=== PATIENT | male | born 1975 | race Caucasian/White ===

== ENCOUNTER 2020-01-27 08:01 | Emergency (ER) | payer OTHER, SELFPAY ==
[2020-01-27 08:05] VITALS: BP 152/86; PULSE 85; RESP 18; TEMP 36.6; O2SAT 99
--- NOTE | 2020-01-27 08:28 | ED.SKABFB ---
HPI - Skin/Abscess/Foreign Bdy General Chief complaint: Skin/Abscess/Foreign Body Stated complaint: POSSIBLE LYME DISEASE Time Seen by Provider: 01/27/20 08:28 Source: patient Mode of arrival: ambulatory Limitations: no limitations History of Present Illness HPI narrative: 44-year-old man comes in today complaining of a rash on his left hip and swollen mildly tender lymph nodes in his left groin. Patient states 1 week ago he pulled a very small tick off his left hip. He noticed redness and swelling after a few days which seems to have gotten somewhat better. He denies fever, chills, vomiting, joint pain, joint swelling, other rash, dysuria, hematuria, discharge and abdominal pain. complaint: rash Onset (ago): day(s) (4) Location: generalized Severity: mild Pain Consistency: constant Relieving factors: none Exacerbating factors: none Context: witnessed insect bite Associated symptoms: nausea and malaise Treatments prior to arrival: none Related Data Allergies Allergy/AdvReac Type Severity Reaction Status Date / Time No Known Allergies Allergy Verified 01/27/20 08:30 Review of Systems Constitutional: Constitutional: Denies chills, Denies fever(s) and Denies weakness ENT: Denies dysphagia, Denies nasal congestion and Denies sore throat Cardiovascular: Cardiovascular: Denies chest pain and Denies radiating jaw, neck or arm pain Respiratory: Respiratory: Denies cough, Denies dyspnea and Denies wheezing Gastrointestinal: Gastrointestinal: Denies abdominal pain, Reports nausea and Denies vomiting Genitourinary: Genitourinary: Denies hematuria, Denies dysuria and Denies penile discharge Integumentary/Breasts: Skin/Breast: Reports as per HPI, Denies pruritus, Denies erythema and Denies rash Neurologic: Denies vertigo, Denies dizziness and Denies syncope Allergic/Immunologic: Allergic/Immunologic: Denies lip swelling and Denies wheezing PMFSH Social History Social History (Updated 01/27/20 @ 08:38 by Carl Mcqueen MD) Smoking status: Former smoker Alcohol intake: current Alcohol use details: Social Substance use: current Substance use type: marijuana Living arrangements: with family Exam Const: General: healthy appearing, no acute distress and alert Nutritional Appearance: well nourished Orientation/consciousness: patient oriented x3 HENMT: Head: normal to inspection Ears: external ears normal, TM's normal bilaterally and EAC's normal Mouth: Yes Normal oral and palatal mucosa present and Yes moist mucous membranes Throat: posterior oropharynx normal and uvula midline Eyes: Conjunctivae: conjunctivae normal Pupils: Equal, round and reactive pupils present EOM: EOMs intact bilaterally Resp: Effort & Inspection: normal respiratory effort and not labored Auscultation: clear to auscultation bilaterally, no rales, no rhonchi and no wheezes Cardio: Rate: regular rate Rhythm: regular rhythm Heart sounds: no murmurs GI: Inspection: non-distended Auscultation: normal bowel sounds Other: no masses, tenderness, organomegaly Skin: General skin exam: normal color, no jaundice and no pallor Other: 2.5 x 3 cm area of erythema with an irregular border. The left supraligamental groin there is a 1.5 cm mobile, nontender smooth lymph node. Neuro: General: patient oriented x3, moves all extremities, no focal motor deficits and CN's II-XI intact bilaterally Speech: normal speech Extrem: General: normal to inspection and no clubbing, cyanosis or edema Psych: Appearance: grossly normal and well kempt Mental Status: mental status grossly normal Affect: normal affect Attitude: cooperative Thought content: Yes Normal thought content present Discharge Plan Discharge Clinical Impression: Tick bite Patient Disposition: Home, Self-Care Condition: Stable Instructions: Antibiotic Form, Tick Bite (ED) Additional Instructions: Follow up with Primary Care Doctor in the next week. Pres
[2020-01-27 08:50] VITALS: BP 152/86; PULSE 85; RESP 18; TEMP 36.6; O2SAT 99
== END 2020-01-27 08:51 | disposition home or self-care (01) ==
PROVIDERS: Emergency Provider Emergency Medicine
DX: S70.262A Insect bite (nonvenomous), left hip, initial encounter (principal); W57.XXXA Bitten or stung by nonvenomous insect and other nonvenomous arthropods, initial encounter
CPT/HCPCS: 99283

== ENCOUNTER 2020-02-09 05:42 | Emergency (ER) | payer OTHER, SELFPAY ==
[2020-02-09 05:43] VITALS: BP 156/87; PULSE 74; RESP 18; TEMP 36.7; O2SAT 98
--- NOTE | 2020-02-09 05:56 | ECG_ITS ---
Measurements Intervals Ericson Rate: 61 P: 70 ME: 167 QRS: -9 QRSD: 100 T: 34 QT: 392 QTc: 396 Interpretive Statements SINUS RHYTHM NORMAL ECG Electronically Signed On 02-09-2020 8:39:23 CDT by Wilbert Obrien D.O.
--- NOTE | 2020-02-09 06:16 | ED.SKABFB ---
HPI - Skin/Abscess/Foreign Bdy General Chief complaint: Skin/Abscess/Foreign Body Stated complaint: Tick bite History of Present Illness HPI narrative: This is a 44-year-old male that presents with a tick bite presented on the 26 of January and had a rash on his left hip area and was prescribed doxycycline which she has some almost completed, patient presents back to the emergency department with feelings of weakness, but the rash has improved there is no fever chills no headaches no neck stiffness no palpitations no nausea vomiting no shortness of breath no abdominal pain no diarrhea constipation. The rash located on the left hip area has improved markedly and does have a improving tender left inguinal lymph node. complaint: rash Onset (ago): week(s) Location: LUE (left hip area) Severity: mild Related Data Allergies Allergy/AdvReac Type Severity Reaction Status Date / Time No Known Allergies Allergy Verified 01/27/20 08:30 Review of Systems Review of Systems: All systems reviewed & are unremarkable except as noted in HPI and below PMFSH Past Medical History Medical History Patient denies medical problems Social History Social History Smoking status: Former smoker Alcohol intake: current Substance use: current Substance use type: marijuana Exam Const: General: no acute distress HENMT: Head: normal to inspection Eyes: Conjunctivae: conjunctivae normal Pupils: Equal, round and reactive pupils present Neck: Neck: normal visual inspection, no lymphadenopathy and no meningeal signs Chest: Chest palpation & inspection: normal inspection of the chest Resp: Effort & Inspection: normal respiratory effort Auscultation: clear to auscultation bilaterally Cardio: Rate: regular rate Rhythm: regular rhythm GI: Auscultation: normal bowel sounds : Testes: Testes normal Urinary Catheter: Urinary Catheter: patent and draining Back/Spine/Pelvis: Back: no CVA tenderness Skin: General skin exam: normal color Other: a rash that has markedly improved since the 26 of January on the left hip area Neuro: General: moves all extremities, no meningeal signs and no focal motor deficits Extrem: General: normal to inspection and no pedal edema Psych: Appearance: grossly normal Mental Status: mental status grossly normal Thought content: Yes Normal thought content present Course Course Emergency Course: patient wanting to extend the dose of doxycycline, and is going to follow-up with primary care physician if symptoms persist or worsen. Vital Signs Vital signs: Vital Signs Temperature 36.7 C 02/09/20 05:43 Pulse Rate 74 02/09/20 05:43 Respiratory Rate 18 02/09/20 05:43 Blood Pressure 156/87 H 02/09/20 05:43 Pulse Oximetry 98 02/09/20 05:43 Temperature 36.7 C 02/09/20 05:43 Pulse Rate 74 02/09/20 05:43 Respiratory Rate 18 02/09/20 05:43 Blood Pressure 156/87 H 02/09/20 05:43 Pulse Oximetry 98 02/09/20 05:43 MDM - Skin/Abscess/Foreign Bdy ECG Data EKG #1: Attestation: I personally reviewed and interpreted this ECG as follows: ECG completion date: 02/09/20 ECG completion time: 06:22 EKG Interpretation: normal rate Critical Care Time Critical Care Time Critical Care Time: No Discharge Plan Discharge Clinical Impression: Tick bite Qualifiers: Encounter type: sequela Qualified Code(s): W57.XXXS - Bitten or stung by nonvenomous insect and other nonvenomous arthropods, sequela Patient Disposition: Home, Self-Care Condition: Stable Instructions: Antibiotic Form, Tick Bite (ED) Additional Instructions: Take medicine as prescribed, can also take Motrin for pain and inflammation and follow-up with primary care physician if symptoms persist or worsen. Prescriptions: New doxycycline hyclate 100 mg tablet 100 mg PO
== END 2020-02-09 06:26 | disposition home or self-care (01) ==
PROVIDERS: Emergency Provider Emergency Medicine
DX: S70.262A Insect bite (nonvenomous), left hip, initial encounter (principal); W57.XXXA Bitten or stung by nonvenomous insect and other nonvenomous arthropods, initial encounter
CPT/HCPCS: 93005; 99283; 99284

== ENCOUNTER 2021-08-30 15:18 | Emergency (ER) | payer OTHER, SELFPAY ==
--- NOTE | ~2021-08-30 | CT_ITS ---
EXAMINATION: CT IAC/mastoids BI wo con EXAM DATE: 08/30/2021 16:13 INDICATION: Right Ear Pain Tenderness Around Ear Dizziness, Posterior Ear Swelling. TECHNIQUE: Spiral CT of the internal auditory canals was performed without contrast. Axial and kamaljit nal images were reviewed. The dose-length product (DLP) for this examination was 267.64 mGy-cm. The exposure was tailored according to patient size, and iterative reconstruction (ASIR) was used as add itional dose reduction technique. There is no prior study for comparison. FINDINGS: RIGHT side: The middle ear is well aerated. The mastoid air cells are well aerated. The seventh scrap shear operator nial nerve has a normal course. The scutum is intact. The ossicles are normal in appearance. Small portions of the tegmen tympani have wall that is imperceptible. The cochlea and semicircular canals are normal in appearance. Internal auditory canal is normal in appearance and symmetric compared to contralateral side. LEFT side: The middle ear is well aerated. The mastoid air cells are well aerated. The seventh cran ial nerve has a normal course. The scutum is intact. The ossicles are normal in appearance. Small portions of the tegmen tympani have wall that is imperceptible. The cochlea and semicircular canals are normal in appearance. Internal auditory canal is normal in appearance and symmetric compared to contralateral side. IMPRESSION: Normal CT IAC/temporal bone exam. Reviewed, dictated and finalized at location A. LEAD ARCHITECT
--- NOTE | 2021-08-30 15:45 | ED.EAR ---
HPI - Ear Problem General Chief complaint: Ear Stated complaint: dizzy,headache,popping in ear Source: patient and RN notes reviewed Mode of arrival: ambulatory Limitations: no limitations History of Present Illness HPI Narrative: patient states he has had problem with the right ear for years. Seems to be more intermittent over the last year where it gets painful around the ear anteriorly and inferiorly. He has been seen for it once in the past was given antibiotics oral and antibiotic drops. He says in the last 2-3 days he has become more dizzy with some headaches feels like the right ear is more tender. he also states he has had some trouble with the to with and the right upper molar. MD Complaint: ear pain Location: right ear Duration: intermittent Severity: moderate Relieving factors: nothing Exacerbating factors: palpation Discharge from ear: Reports no Associated symptoms ear: headache and other ( Dizziness) Treatment prior to arrival: none Related Data Allergies Allergy/AdvReac Type Severity Reaction Status Date / Time No Known Allergies Allergy Verified 01/27/20 08:30 Review of Systems Review of Systems: All systems reviewed & are unremarkable except as noted in HPI and below Constitutional: Constitutional: Denies chills and Denies fever(s) ENT: Denies sore throat Respiratory: Respiratory: Denies cough Gastrointestinal: Gastrointestinal: Denies diarrhea, Denies nausea and Denies vomiting PMFSH Past Medical History Medical History (Updated 08/30/21 @ 16:56 by Juan Carlos Alicea MD) Patient denies medical problems Social History Social History Smoking status: Former smoker Alcohol intake: current Alcohol use details: Social Substance use: current Substance use type: marijuana Exam Const: General: healthy appearing, no acute distress and alert Nutritional Appearance: well nourished and thin Orientation/consciousness: patient oriented x3 HENMT: Head: no temporal artery tenderness Ears: hearing grossly normal bilaterally, TM's normal bilaterally, Abnormal EAC present erythema (Mild) on the right and edema (Mild) on the right; no otic discharge and mastoid abnormal (tender anterior amd inferior to auricle) Eyes: Conjunctivae: conjunctivae normal Pupils: Equal, round and reactive pupils present EOM: EOMs intact bilaterally Neck: Neck: normal visual inspection and no lymphadenopathy Resp: Effort & Inspection: normal respiratory effort Auscultation: clear to auscultation bilaterally Cardio: Rate: regular rate Rhythm: regular rhythm GI: GI Palp: Yes Soft to palpation and No Tenderness to palpation present (GI) Auscultation: normal bowel sounds Back/Spine/Pelvis: Cervical Spine: cervical ROM normal Thoracic/Lumbar Spine: thoraco-lumbar ROM normal Skin: General skin exam: normal color Rashes: no rashes Neuro: General: patient oriented x3, moves all extremities, no meningeal signs, no focal motor deficits and CN's II-XI intact bilaterally Speech: normal speech Gait exam (Neuro): Normal gait present Extrem: General: normal to inspection and no clubbing, cyanosis or edema Psych: Appearance: grossly normal and well kempt Mental Status: mental status grossly normal Affect: normal affect Attitude: cooperative Thought content: Yes Normal thought content present Course Vital Signs Vital signs: Vital Signs Temperature 36.8 C 08/30/21 15:51 Pulse Rate 80 08/30/21 15:51 Respiratory Rate 16 08/30/21 15:51 Blood Pressure 145/100 H 08/30/21 15:51 Pulse Oximetry 100 08/30/21 15:51 Temperature 36.8 C 08/30/21 15:51 Pulse Rate 80 08/30/21 15:51 Respiratory Rate 16 08/30/21 15:51 Blood Pressure 145/100 H 08/30/21 15:51 Pulse Oximetry 100 08/30/21 15:51 Medical Decision Making Vital Signs Vital Signs: Vital Signs Temperature 36.8 C 08/30/21 15:51 Pulse Rate 80 08/30/21 15:51 Respirator
[2021-08-30 15:51] VITALS: BP 145/100; PULSE 80; RESP 16; TEMP 36.8; O2SAT 100
[2021-08-30 16:26] LABS: Basophils Absolute Auto 0.04 K/mm3 (0.00-0.10); Basophils Percent Auto 0.5 % (0.0-1.0); Eosinophils Absolute Auto 0.21 K/mm3 (0.02-0.50); Eosinophils Percent Auto 2.6 % (1.0-6.0); Hematocrit 49.7 % (40.0-54.0); Hemoglobin 17.1 g/dL (14.0-18.0); Immature Granulocyte Absolute 0.04 K/mm3 (0.00-0.00); Immature Granulocyte Percent A 0.5 % (0.0-0.0); Lymphocytes Absolute Auto 2.54 K/mm3 (1.10-4.50); Lymphocytes Percent Auto 30.9 % (18.0-42.0); Mean Corpuscular HGB Conc 34.4 g/dL (32.0-36.0); Mean Corpuscular Hemoglobin 30.9 pg (27.0-31.0); Mean Corpuscular Volume 89.9 fL (78.0-102.0); Mean Platelet Volume 8.8 fl (8.7-11.0); Monocytes Absolute Auto 0.53 K/mm3 (0.10-0.90); Monocytes Percent Auto 6.5 % (2.0-11.0); Neutrophils Absolute Auto 4.9 K/mm3 (1.7-7.2); Platelet Count Result 307 K/mm3 (150-420); Red Blood Count 5.53 M/mm3 (4.70-6.10); Red Cell Distribution Width 11.9 % (11.6-14.4); White Blood Count 8.2 K/mm3 (4.8-10.8)
[2021-08-30 16:43] LABS: Anion Gap 12 mmol/L (8-16); Blood Urea Nitrogen 12 mg/dL (7-18); Carbon Dioxide 26 mmol/L (21-32); Chloride 102 mmol/L (98-108); Estimated CRCL calculation 87 ml/min; Estimated Glomerular Filt Rate > 60; Glucose 94 mg/dL (70-99); Osmolality Calculated 289 mOsm/kg (285-295); Potassium 3.7 mmol/L (3.5-5.1); Sodium 140 mmol/L (136-145)
== END 2021-08-30 17:14 | disposition home or self-care (01) ==
PROVIDERS: Emergency Provider Emergency Medicine
DX: H81.11 Benign paroxysmal vertigo, right ear (principal); H60.311 Diffuse otitis externa, right ear
CPT/HCPCS: 36415; 70480; 80048; 85025; 99283; 99284

== ENCOUNTER 2023-05-05 16:28 | Emergency (ER) | payer OTHER, SELFPAY ==
--- NOTE | 2023-05-05 16:29 | ED.EXTPRO ---
HPI - Extremity Problem General Chief complaint: Wound/Laceration Stated complaint: R leg lacerations Time Seen by Provider: 05/05/23 16:29 History of Present Illness HPI Narrative: Patient is a 47-year-old male with history of hypertension here with a laceration to his right leg. Patient states he was jumping a fence [place] and a fence post cut his right leg. He also notes he has a small wound his right hand from the same accident. He denies falling to ground, denies hitting his head, denies loss of consciousness. He notes he minimal bleeding on scene and was concerned that he may need stitches given the size of the wound so he came in for evaluation. Normal strength and sensation in his leg, has been able to ambulate. Last tetanus was 2-3 years ago. He is currently on a cephalosporin antibiotic for chronic mastoiditis. No blood thinner use. Related Data Home Medications Medication Instructions Recorded Confirmed cefuroxime axetil 500 mg tablet 500 mg PO BID 05/05/23 05/05/23 ciprofloxacin 0.3 %-dexamethasone 4 drp EACH EAR BID 05/05/23 05/05/23 0.1 % ear drops,suspension Allergies Allergy/AdvReac Type Severity Reaction Status Date / Time No Known Allergies Allergy Verified 05/05/23 16:35 Review of Systems Review of Systems: CONSTITUTIONAL: Denies fever, chills HEENT: No head injury, No neck pain CARDIOVASCULAR: Denies chest pain, palpitations RESPIRATORY: Denies cough or dyspnea. GASTROINTESTINAL: Denies abdominal pain SKIN: Wound to right leg and right hand MUSCULOSKELETAL: Right thigh pain, no back pain. NEUROLOGIC: Denies headache [facility] Past Medical History Medical History (Updated 05/05/23 @ 17:01 by Lucy Baires MD) Patient denies medical problems Family History Family History (Updated 01/24/23 @ 16:34 by Nikki Barry CMA) Father Hypertension Mother Hypertension Depression Heart disease Mental health problem Sibling Diabetes mellitus Hypertension Depression Mental health problem Other Depression Mental health problem Grandparent Cancer Diabetes mellitus Hypertension Heart disease Mental health problem Grandparent Hypertension Mental health problem Social History Social History (Updated 01/24/23 @ 16:29 by Nikki Barry CMA) Smoking status: Former smoker Alcohol intake: current Alcohol use details: Social Substance use: current Substance use type: marijuana Lack of Transportation: No Lack of Food: Never True Current Housing: I Have Housing Concerned About Future Housing: No Difficulty Paying Gas/Electric Bills: No Difficulty Paying for Meds: No Currently Unemployed: No Education: Bachelor's Degree Difficulty w/ Childcare or Family Care: No Living arrangements: with family Exam Narrative: GENERAL: Well-appearing, well-nourished, and in no acute distress. HEAD: Normocephalic, atraumatic. EYES: PERRLA and EOMI. ENT: Nares clear. Mucous membranes moist. NECK: Supple. No C-spine tenderness. CHEST: Clear to auscultation. No respiratory distress. HEART: Regular rate and rhythm. Normal peripheral pulses. ABDOMEN: Soft, nontender, nondistended. EXTREMITIES: Normal range of motion. 3 cm vertical linear laceration 5-6 cm proximal to the right knee, no concern for knee joint involvement, adipose visible, no active bleeding, no muscle involvement. Normal PMS distal to injury. Full ROM to right wrist where laceration is present, no tenderness, no snuffbox tenderness. Normal PMS distal to injury. SKIN: Warm, dry, no rash. 4 cm superficial linear abrasion to right wrist. NEURO: No focal deficits. Alert and oriented x3. Course Course Emergency Course: Chart review performed. ENT visit on 01/24/23 for ear pain, thought to be likely TMJ issues. He is here today for a laceration to the leg. Triage vitals grossly within normal limits aside from known hypertension. Patient seen and evaluated, in no acu
[2023-05-05 16:36] VITALS: BP 149/126; PULSE 131; RESP 20; TEMP 36.6; O2SAT 98
[2023-05-05 16:57] VITALS: BP 160/99; PULSE 81; RESP 20; TEMP 37.3; O2SAT 98
--- NOTE | 2023-05-05 17:20 | PC.NURSE ---
On 05/05/23, the student, [merle nj ], provided care and completed [facility] documentation on this patient. I have reviewed the student's documentation and agree with the findings.
== END 2023-05-05 17:18 | disposition home or self-care (01) ==
PROVIDERS: Emergency Provider Student in an Organized Health Care Education/Training Program
DX: S81.812A Laceration without foreign body, left lower leg, initial encounter (principal); I10 Essential (primary) hypertension; Z79.2 Long term (current) use of antibiotics; Z87.891 Personal history of nicotine dependence; W45.8XXA Other foreign body or object entering through skin, initial encounter
CPT/HCPCS: 12002; 99282

== ENCOUNTER 2023-12-16 19:06 | Emergency (ER) | payer OTHER, SELFPAY ==
--- NOTE | ~2023-12-16 | XR_ITS ---
EXAM: XR hand LT min 3V DATE: 12/16/2023 19:25 HISTORY: trauma . COMPARISON: None available. FINDINGS: Lateral view limited by overlapping fingers. Normal mineralization. No fracture or dislocat ion. No lytic or blastic lesion. Joint spaces are maintained. No erosion or periosteal change. Soft t issues tissue defect over the thenar soft tissues. No radio opaque foreign body. IMPRESSION: No acute osseous finding the left hand. Reviewed, dictated and finalized at location K.
[2023-12-16 19:08] VITALS: BP 134/97; PULSE 104; RESP 18; TEMP 36.8; O2SAT 98
--- NOTE | 2023-12-16 19:14 | ED.UPPEXIN ---
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 Pt was using chain saw and not sure if he may have cut hand with saw. Pt says he can move the thumb. Pt says it was numb initially but now has sensation. Pt has laceration to thenar area below left thumb. Pt unsure of last tetanus. Related Data Home Medications Medication Instructions Recorded Confirmed cefuroxime axetil 500 mg tablet 500 mg PO BID 05/05/23 05/05/23 ciprofloxacin 0.3 %-dexamethasone 4 drp EACH EAR BID 05/05/23 05/05/23 0.1 % ear drops,suspension Allergies Allergy/AdvReac Type Severity Reaction Status Date / Time No Known Allergies Allergy Verified 12/16/23 19:14 Review of Systems Review of Systems: All systems reviewed & are unremarkable except as noted in HPI and below PMFSH Past Medical History Medical History (Updated 12/16/23 @ 20:53 by Shreya Mazariegos III, DO) Patient denies medical problems Family History Family History (Updated 01/24/23 @ 16:34 by Nikki Barry CMA) Father Hypertension Mother Hypertension Depression Heart disease Mental health problem Sibling Diabetes mellitus Hypertension Depression Mental health problem Other Depression Mental health problem Grandparent Cancer Diabetes mellitus Hypertension Heart disease Mental health problem Grandparent Hypertension Mental health problem Social History Social History (Updated 01/24/23 @ 16:29 by Nikki Barry CMA) Smoking status: Former smoker Alcohol intake: current Alcohol use details: Social Substance use: current Substance use type: marijuana Lack of Transportation: No Lack of Food: Never True Current Housing: I Have Housing Concerned About Future Housing: No Difficulty Paying Gas/Electric Bills: No Difficulty Paying for Meds: No Currently Unemployed: No Education: Bachelor's Degree Difficulty w/ Childcare or Family Care: No Living arrangements: with family Exam Const: General: healthy appearing Nutritional Appearance: well nourished Orientation/consciousness: patient oriented x3 Limitations: no limitations Neck: Neck: normal visual inspection Resp: Effort & Inspection: normal respiratory effort Auscultation: clear to auscultation bilaterally Cardio: Rate: regular rate Rhythm: regular rhythm GI: GI Palp: Yes Soft to palpation and No Tenderness to palpation present (GI) Auscultation: normal bowel sounds Skin: Wounds: wounds noted (irregular laceration about 4 cm left thenar eminence.) Neuro: General: patient oriented x3, moves all extremities and no focal motor deficits Speech: normal speech Extrem: Other: laceration to thenar eminence with pain and tenderness to that area. no swelling to thumb Psych: Mental Status: mental status grossly normal Affect: normal affect Course Vital Signs Vital signs: Vital Signs Temperature 98.2 F 12/16/23 19:08 Pulse Rate 104 H 12/16/23 19:08 Respiratory Rate 18 12/16/23 19:08 Blood Pressure 134/97 H 12/16/23 19:08 Pulse Oximetry 98 12/16/23 19:08 Oxygen Delivery Room Air 12/16/23 19:08 Temperature 98.2 F 12/16/23 20:59 Pulse Rate 82 12/16/23 20:59 Respiratory Rate 18 12/16/23 20:59 Blood Pressure 128/91 H 12/16/23 20:59 Pulse Oximetry 98 12/16/23 20:59 Oxygen Delivery Room Air 12/16/23 20:59 Procedures Laceration Laceration 1: Site: hand Side (If applicable): left Size (cm): 4 Description: irregular Local Anesthetic: lidocaine 1% Amount of anesthesia used (mL): 15 ====== Skin Level ====== Skin layer closed with: nylon Size (cm): 4-0 Number of sutures: 8 Technique: simple, interrupted ====== Subcut
[2023-12-16] MEDS: KETOROLAC 30 MG/ML VIAL (*BKC) IM (19:16)
--- NOTE | 2023-12-16 20:05 | PC.NURSE ---
DR DUKES AT BEDSIDE FOR SUTURING OF PATIENT LEFT HAND.
[2023-12-16] MEDS: LIDOCAINE HCL 1% LOCAL INJ 10 ML VIAL INFILTRATE ×2 (20:10→20:32)
--- NOTE | 2023-12-16 20:15 | PC.NURSE ---
DR. DUKES AT PATIENT BEDSIDE SUTURING.
[2023-12-16] MEDS: TETANUS,DIPHTHERIA,AC PERTUSSIS ADULT 0.5 ML (ADACEL) IM (20:16)
[2023-12-16 20:59] VITALS: BP 128/91; PULSE 82; RESP 18; TEMP 36.8; O2SAT 98
== END 2023-12-16 21:00 | disposition home or self-care (01) ==
PROVIDERS: Emergency Provider Emergency Medicine; PCP Family Medicine
DX: S61.012A Laceration without foreign body of left thumb without damage to nail, initial encounter (principal); W45.8XXA Other foreign body or object entering through skin, initial encounter; Z87.891 Personal history of nicotine dependence; Z23 Encounter for immunization
CPT/HCPCS: 12002; 73130; 90471; 90715; 96372; 99283; J1885

== ENCOUNTER 2024-07-09 00:04 | Emergency (ER) | payer OTHER, SELFPAY ==
[2024-07-09 00:05] VITALS: BP 167/105; PULSE 89; RESP 18; TEMP 35.8; O2SAT 99
--- NOTE | 2024-07-09 00:06 | ED_ITS ---
HPI - Dental/Oral General Chief complaint: Dental/Oral Stated complaint: tooth pain Time Seen by Provider: 07/09/24 00:06 Source: patient Mode of arrival: ambulatory Limitations: no limitations History of Present Illness HPI Narrative: 48-year-old male with a history of middle ear infection/ mastoiditis on [facility] side presents to the ED with A 2 day history of -- right lower jaw pain with swelling of the jaw. --dental pain. history of dental caries. no fever or chills Teeth map: 1. gingivitis Onset (ago): day(s) ( 2 days) Duration: constant Severity: severe Relieving factors: nothing Exacerbating factors: nothing Context: history of dental caries Related Data Home Medications Medication Instructions Recorded Confirmed cefuroxime axetil 500 mg tablet 500 mg PO BID 05/05/23 05/05/23 ciprofloxacin 0.3 %-dexamethasone 4 drp EACH EAR BID 05/05/23 05/05/23 0.1 % ear drops,suspension Allergies Allergy/AdvReac Type Severity Reaction Status Date / Time No Known Allergies Allergy Verified 12/16/23 19:14 Review of Systems Review of Systems: All systems reviewed & are unremarkable except as noted in HPI and below Constitutional: Constitutional: Reports as per HPI and Reports no additional constitutional complaints Eyes: Eyes: Reports as per HPI and Reports no additional eye complaints ENT: Reports system reviewed and no additional complaints, except as documented and Reports as per HPI Respiratory: Respiratory: Reports as per HPI and Reports no additional respiratory complaints Gastrointestinal: Gastrointestinal: Reports as per HPI Genitourinary: Genitourinary: Reports no additional male genitourinary complaints and Reports as per HPI Musculoskeletal: Musculoskeletal: Reports no additional musculoskeletal complaints and Reports as per HPI Integumentary/Breasts: Skin/Breast: Reports system reviewed and no additional complaints, except as docu and Reports as per HPI Neurologic: Reports system reviewed and no additional complaints, except as documented and Reports as per HPI Psychiatric: Psychiatric: Reports no additional psychiatric complaints and Reports as per HPI Endocrine: Endocrine: Reports no additional endocrine complaints and Reports as per HPI Hematologic/Lymphatic: Hematologic/Lymphatic: Reports no additional hematologic/lymphatic complaints and Reports as per HPI Allergic/Immunologic: Allergic/Immunologic: Reports no additional allergic/immunologic complaints and Reports as per HPI [facility] Past Medical History Medical History (Updated 07/09/24 @ 00:21 by Daljit Sosa MD) Mastoiditis Otitis media Patient denies medical problems Family History Family History (Updated 01/24/23 @ 16:34 by Nikki Barry [facility]) Father Hypertension Mother Hypertension Depression Heart disease Mental health problem Sibling Diabetes mellitus Hypertension Depression Mental health problem Other Depression Mental health problem Grandparent Cancer Diabetes mellitus Hypertension Heart disease Mental health problem Grandparent Hypertension Mental health problem Social History Social History (Updated 01/24/23 @ 16:29 by Nikki Barry [facility]) Smoking status: Former smoker Alcohol intake: current Alcohol use details: Social Substance use: current Substance use type: marijuana Lack of Transportation: No Lack of Food: Never True Current Housing: I Have Housing Concerned About Future Housing: No Difficulty Paying Gas/Electric Bills: No Difficulty Paying for Meds: No Currently Unemployed: No Education: Bachelor's Degree Difficulty w/ Childcare or Family Care: No Living arrangements: with family Exam Narrative: blood pressure 167/105. Const: General: no acute distress Orientation/consciousness: patient oriented x3 Limitations: no limitations HENMT: Head: normal to inspection Ears: external ears normal Face/Nose/Sinus: Normal external nose present Face and sinus: normal facial exam ( Swelling of the right lower jaw) Mouth: Yes Normal oral and palatal mucosa present Teeth and gingiva: dentition normal ( extensive dental caries. Gingivitis along the right lower jaw) Throat: posterior oropharynx normal Eyes: Conjunctivae: conjunctivae normal Pupils: Equal, round and reactive pupils present EOM: EOMs intact bilaterally Direct Ophthalmoscopy: no photophobia Neck: Neck: normal visual inspection, no lymphadenopathy and no meningeal signs Chest: Chest palpation & inspection: normal inspection of the chest Resp: Effort & Inspection: normal respiratory effort Auscultation: clear to auscultation bilaterally Cardio: Rate: regular rate Rhythm: regular rhythm GI: Auscultation: normal bowel sounds Other: no tenderness/rigidity / rebound. : General: Yes no CVA tenderness Back/Spine/Pelvis: Back: no CVA tenderness Skin: General skin exam: normal color Rashes: no rashes Wounds: no wounds Neuro: General: patient oriented x3, moves all extremities, no meningeal signs, no focal motor deficits and CN's II-XI intact bilaterally Cranial nerves: Yes Nystagmus not present Speech: normal speech Extrem: General: normal to inspection and no clubbing, cyanosis or edema Psych: Mental Status: mental status grossly normal Affect: normal affect Attitude: cooperative Course Course Emergency Course: Gingivitis dental pain Vital Signs Vital signs: Vital Signs Temperature 35.8 C L 07/09/24 00:05 Pulse Rate 89 07/09/24 00:05 Respiratory Rate 18 07/09/24 00:05 Blood Pressure 167/105 H 07/09/24 00:05 Pulse Oximetry 99 07/09/24 00:05 Oxygen Delivery Room Air 07/09/24 00:05 Temperature 35.8 C L 07/09/24 00:05 Pulse Rate 89 07/09/24 00:05 Respiratory Rate 18 07/09/24 00:05 Blood Pressure 167/105 H 07/09/24 00:05 Pulse Oximetry 99 07/09/24 00:05 Oxygen Delivery Room Air 07/09/24 00:05 MDM - Dental/Oral MDM Narrative Medical decision making narrative: gingivitis dental pain Differential Diagnosis Differential diagnosis: Likely gingival abscess and dental caries Discharge Plan Discharge Clinical Impression: Gingivitis, Toothache Patient Disposition: Home, Self-Care Condition: Stable Instructions: Antibiotic Form, Gingivitis (DC), Toothache (ED) Patient Language: Lithuanian Prescriptions: New clindamycin HCl 300 mg capsule 300 mg PO Q8H Qty: 20 0RF No Action cephalexin 500 mg tablet 500 mg PO Q8H Qty: 30 0RF naproxen [Naprosyn] 500 mg tablet 500 mg PO BID Qty: 20 0RF cefuroxime axetil 500 mg tablet 500 mg PO BID ciprofloxacin-dexamethasone 0.3-0.1 % drops,suspension 4 drp EACH EAR BID Follow-up/Referrals: UNKNOWN,DOCTOR [Primary Care Provider] - Stand Alone Forms: Work/School Release IP Time of Disposition: 00:21
[2024-07-09] MEDS: CLINDAMYCIN HCL 150 MG CAP 300 MG PO (00:21)
[2024-07-09] MEDS: HYDROcodone/acetaminophen (*CRX) 5-325 MG TABLET 2 TAB PO (00:21)
[2024-07-09 00:46] VITALS: BP 158/92; PULSE 82; RESP 18; O2SAT 97
== END 2024-07-09 00:46 | disposition home or self-care (01) ==
PROVIDERS: Emergency Provider Internal Medicine Critical Care Medicine
DX: K05.10 Chronic gingivitis, plaque induced (principal); Z87.891 Personal history of nicotine dependence
CPT/HCPCS: 99283; A9270

== ENCOUNTER 2025-01-06 06:23 | Emergency (ER) | payer OTHER, SELFPAY ==
[2025-01-06 06:23] VITALS: BP 178/105; PULSE 96; RESP 18; TEMP 36.2; O2SAT 98
--- OUTSIDE RECORDS SUMMARY | 2025-01-06 06:25 | XMS_ITS | Continuity of Care Document ---
Author Organization [facility] Address [address] [place] [address] Phone Care Team Providers Care Assistant Professor Of Education Name Role Phone Unavailable Unavailable Unavailable Allergies, Adverse Reactions, Alerts Substance Reaction Status Criticality No Known Allergies Active No Inform ation Medications Medication Instructions Dosage Effective Dates (start - stop) Status Comments hydrocodone 5 mg-acetaminophen 325 mg tablet take 1 tablet by oral route every 6 hours as needed for pain 1.00 tablet - Active Procedures Procedure Date OFFICE/OUTPATIENT VISIT, [facility] Advance Directives Directive Yes / No Effective Date File Name No Information Encounters Encounter Description Practice Location Reason(s) For Visit Diagnoses Date Provider Providers Copied on Encounter [facility], [address], [place], [id number], [place] tel:[phone] [facility] [address] No Information 5 No Information OFFICE/OUTPA TIENT VISIT, [facility], [address], [place], [id number], [place] tel:[phone] [facility] [address] initial new pt visit (chief complaint) BMI of 25.0 - 25.9 (Overweight)Depre ssionPulmonary disorderIntercost al neuralgia 4-201 5 No Information Family History Family Member Type Diagnosis Age At Onset No Information Payers Payer name Insurance type Covered democrat ID Mary mai(s) [place] Medicaid MC [id number] Social History Type Description Quantity Date Captured [...] seen another provider before he moved to [place] who told him he has intercostal arch pain, offered nerve block but was unable to follow up due to move, was being seen by ortho and would like a referral to one in [place]. He is very depressed since the injury, his is about to give to his 5th child any minute now. 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 Does not [...]
--- OUTSIDE RECORDS SUMMARY | 2025-01-06 06:39 | XMS_ITS | Continuity of Care Document ---
Author Organization [facility] Address [address] [place] [address] Phone Care Team Providers Care Sewing Machine Mechanic Name Role Phone Unavailable Unavailable Unavailable Allergies, Adverse Reactions, Alerts Substance Reaction Status Criticality No Known Allergies Active No Inform ation Medications Medication Instructions Dosage Effective Dates (start - stop) Status Comments hydrocodone 5 mg-acetaminophen 325 mg tablet take 1 tablet by oral route every 6 hours as needed for pain 1.00 tablet - Active Procedures Procedure Date OFFICE/OUTPATIENT VISIT, [facility] Advance Directives Directive Yes / No Effective Date File Name No Information Encounters Encounter Description Practice Location Reason(s) For Visit Diagnoses Date Provider Providers Copied on Encounter [facility], [address], [place], [id number], [place] tel:[phone] [facility] [address] No Information 5 No Information OFFICE/OUTPA TIENT VISIT, [facility], [address], [place], [id number], [place] tel:[phone] [facility] [address] initial new pt visit (chief complaint) BMI of 25.0 - 25.9 (Overweight)Depre ssionPulmonary disorderIntercost al neuralgia 4-201 5 No Information Family History Family Member Type Diagnosis Age At Onset No Information Payers Payer name Insurance type Covered republican ID Mary mai(s) [place] Medicaid MC [id number] Social History Type Description Quantity Date Captured [...] seen another provider before he moved to [place] who told 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 He is very depressed since the injury, his is about to give to his 5th child any minute now. 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 Does not [...]
--- NOTE | 2025-01-06 06:53 | ED_ITS ---
HPI - Dental/Oral General Chief complaint: Dental/Oral Stated complaint: Tooth Abscess Source: patient Mode of arrival: ambulatory Limitations: no limitations History of Present Illness HPI Narrative: Patient is a 49-year-old male with significant past medical history that presents today for a dental abscess. Patient has Del abscess and his bottom middle tooth. He has since last 2 days but this morning woke up and his tire face was swollen and the abscess got larger and hurts to the bottom of his Jaw. He states hers shoe hertz swallow any food. He says that he has had a spinal abscess before and they are very painful his pain is 10 out 10. MD Complaint: tooth pain Location: Tooth # Teeth map: 2 1. Tooth abscess Onset (ago): day(s) Duration: constant Severity: severe Severity scale (1-10): 9 Relieving factors: NSAIDs Exacerbating factors: chewing Context: history of dental caries Associated symptoms: gum swelling Treatment prior to arrival: none Related Data Home Medications ?Medication ?Instructions ?Recorded ?Confirmed ?Last Taken ?Type cefuroxime axetil 500 mg tablet 500 mg PO BID 05/05/23 05/05/23 Unknown History ciprofloxacin 0.3 %-dexamethasone 4 drp EACH EAR BID 05/05/23 05/05/23 Unknown History 0.1 % ear drops,suspension Allergies Allergy/AdvReac Type Severity Reaction Status Date / Time No Known Allergies Allergy Verified 12/16/23 19:14 Review of Systems 2 Review of Systems: All systems reviewed & are unremarkable except as noted in HPI and below Constitutional: Constitutional: Reports as per HPI Eyes: Eyes: Reports no additional eye complaints ENT: Reports as per HPI Cardiovascular: Cardiovascular: Reports no additional cardiovascular complaints Respiratory: Respiratory: Reports no additional respiratory complaints Gastrointestinal: Gastrointestinal: Reports no additional gastrointestinal complaints Genitourinary: Genitourinary: Reports no additional male genitourinary complaints Musculoskeletal: Musculoskeletal: Reports no additional musculoskeletal complaints Integumentary/Breasts: Skin/Breast: Reports system reviewed and no additional complaints, except as docu Neurologic: Reports system reviewed and no additional complaints, except as documented Psychiatric: Psychiatric: Reports no additional psychiatric complaints Endocrine: Endocrine: Reports no additional endocrine complaints Hematologic/Lymphatic: Hematologic/Lymphatic: Reports no additional hematologic/lymphatic complaints Allergic/Immunologic: Allergic/Immunologic: Reports no additional allergic/immunologic complaints [facility] Past Medical History Medical History Mastoiditis Otitis media Patient denies medical problems Family History Family History Father Hypertension Mother Hypertension Depression Heart disease Mental health problem Sibling Diabetes mellitus Hypertension Depression Mental health problem Other Depression Mental health problem Grandparent Cancer Diabetes mellitus Hypertension Heart disease Mental health problem Grandparent Hypertension Mental health problem Social History Social History Smoking status: Former smoker Alcohol intake: current Alcohol use details: Social Substance use: current Substance use type: marijuana Lack of Transportation: No Lack of Food: Never True Current Housing: I Have Housing Concerned About Future Housing: No Difficulty Paying Gas/Electric Bills: No Difficulty Paying for Meds: No Currently Unemployed: No Education: Bachelor's Degree Difficulty w/ Childcare or Family Care: No Living arrangements: with family Exam 2 Const: General: healthy appearing Nutritional Appearance: well nourished Orientation/consciousness: patient oriented x3 Limitations: no limitations HENMT: Head: normal to inspection Ears: external ears normal F stephanie/Nose/Sinus: Normal external nose present Mouth: Yes Abnormal oral and palatal mucosa present ( dental abscess) Teeth and gingiva: abnormal tooth and associated gingiva ( dental abscess) Eyes: Conjunctivae: conjunctivae normal Pupils: Equal, round and reactive pupils present EOM: EOMs intact bilaterally Neck: Neck: normal visual inspection Chest: Chest palpation & inspection: normal inspection of the chest Resp: Effort & Inspection: normal respiratory effort Auscultation: clear to auscultation bilaterally Cardio: Rate: regular rate Rhythm: regular rhythm Heart sounds: Murmur heart sound present GI: GI Palp: Yes Soft to palpation : General: Yes bladder normal to palpation Male General Exam: Yes normal external exam Penis: Yes normal penis Skin: General skin exam: normal color Rashes: no rashes Wounds: no wounds Neuro: General: patient oriented x3 Cranial nerves: Yes Nystagmus not present Speech: normal speech Gait exam (Neuro): Normal gait present Extrem: General: normal to inspection Psych: Mental Status: mental status grossly normal Affect: normal affect Attitude: cooperative Course Vital Signs Vital signs: Vital Signs Temperature 97.1 F L 01/06/25 06:23 Pulse Rate 96 01/06/25 06:23 Respiratory Rate 18 01/06/25 06:23 Blood Pressure 178/105 H 01/06/25 06:23 Pulse Oximetry 98 01/06/25 06:23 Oxygen Delivery Room Air 01/06/25 06:23 Temperature 97.1 F L 01/06/25 06:23 Pulse Rate 96 01/06/25 06:23 Respiratory Rate 18 01/06/25 06:23 Blood Pressure 178/105 H 01/06/25 06:23 Pulse Oximetry 98 01/06/25 06:23 Oxygen Delivery Room Air 01/06/25 06:23 MDM - Dental/Oral MDM Narrative Medical decision making narrative: patient has dental abscess and has frontal bottom tooth. It has some pus coming out of it and has swollen jaw around that area. He has not have allergic to any medications. Will give him clindamycin for this will send this to his pharmacy and a 10 day supply. Differential Diagnosis Differential diagnosis: Likely dental abscess Medical Records Attestation: I reviewed the patient's medical records. Lab Data Attestation: I reviewed the patient's lab results. Discharge Plan Discharge Clinical Impression: Dental abscess, Toothache Patient Disposition: Home Condition: Stable Instructions: Dental Abscess (ED) Patient Language: Stateless Prescriptions: New clindamycin HCl [Cleocin HCl] 300 mg capsule 300 mg PO TID Qty: 30 0RF No Action cephalexin 500 mg tablet 500 mg PO Q8H Qty: 30 0RF naproxen [Naprosyn] 500 mg tablet 500 mg PO BID Qty: 20 0RF clindamycin HCl 300 mg capsule 300 mg PO Q8H Qty: 20 0RF cefuroxime axetil 500 mg tablet 500 mg PO BID ciprofloxacin-dexamethasone 0.3-0.1 % drops,suspension 4 drp EACH EAR BID Follow-up/Referrals: Bossman Robles MD [Primary Care Provider] - Stand Alone Forms: Work/School Release IP Time of Disposition: 06:59
[2025-01-06 07:03] VITALS: BP 157/98
== END 2025-01-06 07:03 | disposition home or self-care (01) ==
PROVIDERS: Emergency Provider Family Medicine; PCP Internal Medicine
DX: K04.7 Periapical abscess without sinus (principal); Z87.891 Personal history of nicotine dependence; F12.90 Cannabis use, unspecified, uncomplicated
CPT/HCPCS: 99283

== ENCOUNTER 2025-03-02 00:20 | Emergency (ER) | payer OTHER, SELFPAY ==
--- NOTE | ~2025-03-02 | CT_ITS ---
Non-contrast CT scan of the Pelvis Clinical indication: Status post fall Technique: 2.5 mm axial scans were obtained through the pelvis without intravenous or oral contrast. Dose reduction technique was used on this scan by utilizing automated exposure control and iterative reconstruction technique. The dose-length product (DLP) was 353.50 mGy-cm. Findings: No fracture or dislocation seen. Osseous alignment is anatomic. Bilateral hip and SI joint spaces are preserved. No joint effusion evident. No soft tissue mass or fluid collection seen peripherally in the pelvis. Visualized musculature unrem arkable. Visualized bowel loops are unremarkable. No pelvic mass or ascites seen. Impression: No significant abnormality seen. Reviewed, dictated and finalized at location . Impression: No significant abnormality seen.
--- NOTE | ~2025-03-02 | CT_ITS ---
Noncontrast CT scan of the lumbar spine CLINICAL HISTORY: Status post fall TECHNIQUE: Axial noncontrast imaging of the lumbar spine was performed. Sagittal and coronal reformat angelic images were constructed. Dose reduction technique was used on this scan by utilizing automated ex posure control and iterative reconstruction technique. The dose-length product (DLP) was 1012.76 mGy- cm. FINDINGS: There is no fracture or subluxation of lumbar spine. Vertebral bodies maintain normal heigh t ventilated. At L1-L2, there is no significant disc bulge or herniation. No spinal canal stenosis or neural forami nal narrowing. At L2-L3, there is minimal disc bulge with minimal facet hypertrophy. No spinal canal stenosis. There is probable minimal bilateral neural foraminal narrowing. L3-L4, there is minimal disc bulge. No spinal canal stenosis. Probable mild to moderate right neural foraminal narrowing. Left neural foramen preserved. At L4-L5, there is mild disc bulge and mild facet hypertrophy. No spinal canal stenosis. There is mod erate bilateral neural foraminal narrowing. At L5-S1, there is minimal disc bulge. No spinal canal stenosis. There is moderate to advanced bilate ral neural foraminal narrowing. Paravertebral soft tissues are unremarkable. Impression: No fracture or subluxation. Multilevel neural foraminal narrowing, as above. Reviewed, dictated and finalized at [facility]. Impression: No fracture or subluxation. Multilevel neural foraminal narrowing, as above.
[2025-03-02 00:20] VITALS: BP 144/86; PULSE 96; RESP 16; TEMP 36.9; O2SAT 97
--- OUTSIDE RECORDS SUMMARY | 2025-03-02 00:24 | XMS_ITS | Continuity of Care Document ---
Author Organization [facility] Address [address] [place] [address] Phone Care Team Providers Care Erosion Control Coordinator Name Role Phone Unavailable Unavailable Unavailable Allergies, Adverse Reactions, Alerts Substance Reaction Status Criticality No Known Allergies Active No Inform ation Medications Medication Instructions Dosage Effective Dates (start - stop) Status Comments hydrocodone 5 mg-acetaminophen 325 mg tablet take 1 tablet by oral route every 6 hours as needed for pain 1.00 tablet - Active Procedures Procedure Date OFFICE/OUTPATIENT VISIT, [facility] Advance Directives Directive Yes / No Effective Date File Name No Information Encounters Encounter Description Practice Location Reason(s) For Visit Diagnoses Date Provider Providers Copied on Encounter [facility], [address], [place], [id number], [place] tel:[phone] [facility] [address] No Information 5 No Information OFFICE/OUTPA TIENT VISIT, [facility], [address], [place], [id number], [place] tel:[phone] [facility] [address] initial new pt visit (chief complaint) BMI of 25.0 - 25.9 (Overweight)Depre ssionPulmonary disorderIntercost al neuralgia 4-201 5 No Information Family History Family Member Type Diagnosis Age At Onset No Information Payers Payer name Insurance type Covered republican ID Mary mai(s) [place] Medicaid MC [id number] Social History Type Description Quantity Date Captured [...] seen another provider before he moved to [place] who told him he has intercostal arch pain, offered nerve block but was unable to follow up due to move, was being seen by ortho and would like a referral to one in [place]. He is very depressed since the injury, his is about to give to his 5th child any minute now. 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 Does not [...]
--- OUTSIDE RECORDS SUMMARY | 2025-03-02 00:24 | XMS_ITS | Encounter Summary ---
Author Organization [facility] Address [address] [place] [address] Care Team Providers Care Health Information Director Name Role Phone None, Provider Primary Care Provider Mikie Stratton MD Primary Care Provider Encounter Details Date Type Department Care Team (Late st Contact Info) Description 01/24/2019 Abstract SFL CONVERSION [address] [place] [address] , Generic Conversion, Social History Tobacco Use Types Packs/Day Years Used Date Smoking Tobacco: Never Assessed Sex and Gender Information Value Date Recorded Sex Assigned at Not on file Legal Sex Male 11:18 PM CDT Gender Identity Not on file Sexual Orientation Not on file documented as of this encounter Plan of Treatment Not on file documented as of this encounter Visit Diagnoses Not on filedocumented in this encounter Care Teams Health Information Director Relationship Specialty Start Date End Date None, ProviderMD PCP - General 01/14/22 01/03/23 Mikie Ha MD [address] [place] [phone] PCP - General FAMILY PRACTICE 01/04/23 documented as of this encounter
--- OUTSIDE RECORDS SUMMARY | 2025-03-02 00:24 | XMS_ITS | Clinical Summary ---
Author Organization [facility] Address [facility] [place] [address] Care Team Providers Care Drawing Box Tender Name Role Phone Mikie Ha MD Primary Care Provider Allergies No known active allergies Medications No known medications Family History Medical History Relation Comments Hypertension Father Hypertension Mother Relation Status Comments Father Alive Mother Alive Social History Tobacco Use Types Packs/Day Years Used Date Smoking Tobacco: Former Smokeless Tobacco: Never Alcohol Use Standard Drinks/Week Comments Yes 0 (1 standard drink = 0.6 oz pur e alcohol) Sex and Gender Information Value Date Recorded Sex Assigned at Not on file Legal Sex Male 11:18 PM CDT Gender Identity Not on file Sexual Orientation Not on file Last Filed Vital Signs Vital Sign Reading Time Taken Comments Blood Pressure 154/102 03/30/2024 10:15 PM CDT Pulse 101 03/30/2024 9:40 PM CDT Temperature 36.8 C (98.2 F) 03/30/2024 9:42 PM CDT Respiratory Rate 16 03/30/2024 9:40 PM CDT Oxygen Saturation 97% 03/30/2024 10:15 PM CDT Inhaled Oxygen Concentration - - Weight 90.3 kg (199 lb) 03/30/2024 9:40 PM CDT Height 180.3 cm (5' 11) 03/30/2024 9:40 PM CDT Body Mass Index 27.75 03/30/2024 9:40 PM CDT Plan of Treatment Health Maintenance Due Date Last Done Comments Colorectal Cancer Screening Colonoscopy (10 Years) 1977 Annual Physical 1980 Hepatitis C 1995 Hepatitis B Vaccines (1 of 3 - 19+ 3-dose series) 1996 COVID-19 Vaccine (2023-2 5 season) 2024 DTaP, Tdap and Td Vaccines ( 2 - Td or Tdap) 12/15/2033 12/16/2023 Meningococcal B Vaccine Aged Out No l onger eligible based on patient's age to complete this topic Meningococcal Vaccine Aged Out No jarret zacarias eligible based on patient's age to complete this topic Pneumococcal Vaccine: Pediat rics (0 to 5 Years) and At-Risk Patients (6 to 49 Years) Aged Out No longer eligi ble based on patient's age to complete this topic RSV Immunizations Under 20 Months Aged Out No longer eligible based on patient's age to complete this topic [place] [address] [place] [address] Care Teams Drawing Box Tender Relationship Specialty Start Date End Date Mikie Ha MD [address] [place] [phone] PCP - General FAMILY PRACTICE 01/04/23
--- NOTE | 2025-03-02 00:51 | ED_ITS ---
HPI - Back Pain/Injury General Chief Complaint: Back Pain/Injury Stated Complaint: back pain Time Seen by Provider: 03/02/25 00:48 Source: patient and family Mode of arrival: ambulatory Limitations: no limitations History of Present Illness HPI Narrative: patient was laying down on a small bed, rolled over, fell roughly 1 ft against he pointed age something causing pain at the right lower back 3 days ago. No ot her injuries Related Data Allergies Allergy/AdvReac Type Severity Reaction Status Date / Time No Known Allergies Allergy Verified 01/06/25 06:59 Review of Systems Review of Systems: All systems reviewed & are unremarkable except as noted in HPI and below PMFSH Past Medical History Medical History Mastoiditis Otitis media Patient denies medical problems Family History Family History Father Hypertension Mother Hypertension Depression Heart disease Mental health problem Sibling Diabetes mellitus Hypertension Depression Mental health problem Other Depression Mental health problem Grandparent Cancer Diabetes mellitus Hypertension Heart disease Mental health problem Grandparent Hypertension Mental health problem Social History Social History Smoking status: Former smoker Alcohol intake: current Alcohol use details: Social Substance use: current Substance use type: marijuana Lack of Transportation: No Lack of Food: Never True Current Housing: I Have Housing Concerned About Future Housing: No Difficulty Paying Gas/Electric Bills: No Difficulty Paying for Meds: No Currently Unemployed: No Education: Bachelor's Degree Difficulty w/ Childcare or Family Care: No Living arrangements: with family Exam Narrative: General appearance: Well-developed, well-nourished Skin: Normal color Head: Normocephalic, nontraumatic Eyes: Clear conjunctiva ENT: Oropharynx normal, ears normal, nose normal Neck: Supple, nontender Chest and respiratory: Airway patent, no respiratory distress, no accessory muscle use Heart: Regular rate/rhythm Abdomen: Soft, nontender, no organomegaly, quiet bowel sounds Vascular: Normal peripheral pulses, normal capillary refill. Musculoskeletal: diffuse tenderness right lower back, no bruises, no swelling, no rash slight limited range of motion of the right hip because of the pain Neurologic: Alert and oriented ?3, SECURITY INCIDENT RESPONSE ENGINEER is normal as tested, no gross motor deficit Course Vital Signs Vital signs: Vital Signs Temperature 36.9 C 03/02/25 00:20 Pulse Rate 96 03/02/25 00:20 Respiratory Rate 16 03/02/25 00:20 Blood Pressure 144/86 H 03/02/25 00:20 Pulse Oximetry 97 03/02/25 00:20 Oxygen Delivery Room Air 03/02/25 00:20 Temperature 36.9 C 03/02/25 00:20 Pulse Rate 96 03/02/25 00:20 Respiratory Rate 16 03/02/25 00:20 Blood Pressure 144/86 H 03/02/25 00:20 Pulse Oximetry 97 03/02/25 00:20 Oxygen Delivery Room Air 03/02/25 00:20 MDM - Back Pain/Injury MDM Narrative Medical decision making narrative: right lower back contusion, less likely fracture Imaging Data Radiologist's impression: CT pelvis showed no acute osseous abnormality CT lumbar spine showed acute nondisplaced fracture posterior right rib 12 Acute right transverse process fractures L1 and L2. Critical Care Time Critical Care Time Critical Care Time: No Discharge Plan Discharge Clinical Impression: Fracture of transverse process of lumbar vertebra, Right rib fracture Patient Disposition: Home Condition: Stable Instructions: Acute Low Back Pain (ED) Additional Instructions: Return if symptoms are worsening , call your family physician for appointment, take Tylenol , ibuprofen as as needed for aches and pain, continue home medications. Patient Language: Chinese Prescriptions: New cyclobenzaprine 10 mg tablet 10 mg PO TID PRN (Reason: muscle spasm) Qty: 20 0RF hydrocodone-acetaminophen 5-325 mg tablet 1 tablet PO Q4H Qty: 20 0RF No Action naproxen [Naprosyn] 500 mg tablet 500 mg PO BID Qty: 20 0RF Follow-up/Referrals: UNKNOWN,DOCTOR [Primary Care Provider] - Stand Alone Forms: Work/School Release IP
--- OUTSIDE RECORDS SUMMARY | 2025-03-02 00:57 | XMS_ITS | Continuity of Care Document ---
Author Organization [facility] Address [address] [place] [address] Phone Care Team Providers Care Police Captain Senior Name Role Phone Unavailable Unavailable Unavailable Allergies, Adverse Reactions, Alerts Substance Reaction Status Criticality No Known Allergies Active No Inform ation Medications Medication Instructions Dosage Effective Dates (start - stop) Status Comments hydrocodone 5 mg-acetaminophen 325 mg tablet take 1 tablet by oral route every 6 hours as needed for pain 1.00 tablet - Active Procedures Procedure Date OFFICE/OUTPATIENT VISIT, [facility] Advance Directives Directive Yes / No Effective Date File Name No Information Encounters Encounter Description Practice Location Reason(s) For Visit Diagnoses Date Provider Providers Copied on Encounter [facility], [address] [place], [place], [id number], [place] tel:[phone] [facility] [address] No Information 5 No Information OFFICE/OUTPA TIENT VISIT, [facility], [address] [place], [place], [id number], [place] tel:[phone] [facility] [address] initial new pt visit (chief complaint) BMI of 25.0 - 25.9 (Overweight)Depre ssionPulmonary disorderIntercost al neuralgia 4-201 5 No Information Family History Family Member Type Diagnosis Age At Onset No Information Payers Payer name Insurance type Covered republican ID Mary mai(s) [place] Medicaid [id number] Social History Type Description Quantity Date Captured [...] seen another provider before he moved to [place] who told him he has intercostal arch pain, offered nerve block but was unable to follow up due to move, was being seen by ortho and would like a referral to one in [place]. He is very depressed since the injury, his is about to give to his 5th child any minute now. 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 Does not [...]
--- OUTSIDE RECORDS SUMMARY | 2025-03-02 00:57 | XMS_ITS | Encounter Summary ---
Author Organization [facility] Address [address] [place] [address] Care Team Providers Care Cobol Engineer Name Role Phone None, Provider Primary Care Provider Mikie Stratton MD Primary Care Provider Encounter Details Date Type Department Care Team (Late st Contact Info) Description 01/24/2019 Abstract SFL CONVERSION [address] [place] [address] , Generic Conversion, Social History Tobacco Use [...] on filedocumented in this encounter Care Teams Cobol Engineer Relationship Specialty Start Date End Date None, ProviderMD PCP - General 01/14/22 01/03/23 Mikie Ha MD [address] [place] [phone] PCP - General FAMILY PRACTICE 01/04/23 documented as of this encounter
--- OUTSIDE RECORDS SUMMARY | 2025-03-02 00:57 | XMS_ITS | Clinical Summary ---
Author Organization [facility] Address [facility] [place] [address] Care Team Providers Care Drum Loader And Unloader Name Role Phone Mikie Ha MD Primary [...] patient's age to complete this topic [place] [address] [place] [address] Care Teams Drum Loader And Unloader Relationship Specialty Start Date End Date Mikie Ha MD [address] [place] [phone] PCP - General FAMILY PRACTICE 01/04/23
[2025-03-02] MEDS: HYDROcodone/acetaminophen (*CRX) 5-325 MG TABLET 1 TAB PO (01:11)
[2025-03-02] MEDS: IBUPROFEN 600 MG TABLET PO (01:12)
[2025-03-02 02:03] VITALS: BP 132/87; PULSE 80; RESP 18; O2SAT 99
== END 2025-03-02 02:03 | disposition home or self-care (01) ==
PROVIDERS: Emergency Provider Emergency Medicine
DX: S32.008A Other fracture of unspecified lumbar vertebra, initial encounter for closed fracture (principal); S22.31XA Fracture of one rib, right side, initial encounter for closed fracture; W06.XXXA Fall from bed, initial encounter
CPT/HCPCS: 72131; 72192; 99284; A9270

== ENCOUNTER 2025-07-18 00:58 | Emergency (ER) | payer OTHER, SELFPAY ==
--- OUTSIDE RECORDS SUMMARY | 2015-06-13 05:54 | XMS_ITS | Continuity of Care Document ---
Author Organization [facility] Address [address] [place] [address] Phone Care Team Providers Care Skoog Operator Name Role Phone Unavailable Unavailable Unavailable Allergies, Adverse Reactions, Alerts Substance Reaction Status Criticality No Known Allergies Active No Inform ation Medications Medication Instructions Dosage Effective Dates (start - stop) Status Comments hydrocodone 5 mg-acetaminophen 325 mg tablet take 1 tablet by oral route every 6 hours as needed for pain 1.00 tablet - Active Procedures Procedure Date OFFICE/OUTPATIENT VISIT, [facility] Advance Directives Directive Yes / No Effective Date File Name No Information Encounters Encounter Description Practice Location Reason(s) For Visit Diagnoses Date Provider Providers Copied on Encounter [facility], [address], [place], [id number], [place] tel:[phone] [facility] [address] No Information 5 No Information OFFICE/OUTPA TIENT VISIT, [facility], [address], [place], [id number], [place] tel:[phone] [facility] [address] initial new pt visit (chief complaint) BMI of 25.0 - 25.9 (Overweight)Depre ssionPulmonary disorderIntercost al neuralgia 4-201 5 No Information Family History Family Member Type Diagnosis Age At Onset No Information Payers Payer name Insurance type Covered constitution party ID Mary mai(s) [place] Medicaid MC [id number] Social History Type Description Quantity Date Captured Comments Sex Male Smoking Status No Information Chief Complaint And Reason For Visit No Information Reason For Referral Reason For Referral No Information Plan Of Treatment Date Type Action Status Goal Lifestyle education regardin g diet completed Referral Ordered: Orthopedic Surgeon (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 Evaluate and treat ordered Referral Ordered: Referrals: Neurology. Evaluate and treat Appointment date/timeframe: 02/17/2015 ordered History Of Present Illness Encounter Date Complaint History Of Prese nt Illness initial new pt visit The symptom s are reported as being severe. The symptoms occur constantly. New pt appt to establish care, reports he broke his rib in October 2013 and has been having sinificant issues since. Went to the ER and found that there were multiple possible granulomas in his lungs b/l. Reports that he did have a nodule removed from his lung 2008 and was found to be benign granuloma. Has appt scheduled this month to see pulmonolgy. He does not think that his residual anterior chest pain is related to his lung condition as he is having no difficulty breathing, cough, SOB, etc. Has seen another provider before he moved to [place] who told him he has intercostal arch pain, offered nerve block but was unable to follow up due to move, was being seen by ortho and would like a referral to one in [place]. He is very depressed since the injury, his is about to give to his 5th child any minute now. 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 Does not want to be medicated at this time. Functional Status Date Functional Assessmen t No Information Instructions Date Instruction Additional Infor mation At this time, pt dec lined medications or referral. Advised pt of stress relieving activites, offered pt to speak to me when he needs to, and encouraged pt that if symptoms worsened, to RTC. Pt agreed to plan. Related to Depression Ortho referral per p atient request, does not want pain medications at this time. Palpable mass likely related to residual inflammation from fractured rib. 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 Related to BMI of 25.0 - 25.9 (Overweight) Pt has referral to p ulmonologist for [facility], appt scheduled for February 09. Follow up as needed. Related to Pulmonary disorder Lifestyle education regarding di et Related to BMI of 25.0 - 25.9 (Overweight) Assessments Type Assessment Date No Information Patient Care Teams Name Effective Dates (start - stop) Status Members No Information
[2025-07-18 01:00] VITALS: BP 179/110; PULSE 80; RESP 19; TEMP 36.2; O2SAT 100
--- OUTSIDE RECORDS SUMMARY | 2025-07-18 01:00 | XMS_ITS | Clinical Summary ---
Author Organization [facility] Address [facility] [place] [address] Care Team Providers Care Hydraulic Billet Maker Name Role Phone Mikie Ha MD Primary Care Provider [phone] Allergies No known active allergies Medications No [...] - 19+ 3-dose series) 1996 COVID-19 Vaccine (2024-2 6 season) 2025 Influenza Adult (#1) 2025 DTaP, Tdap and Td Vaccines ( 2 - Td or Tdap) 12/15/2033 12/16/2023 Hepatitis A Vaccines Aged Out No long er eligible based on patient's age to complete this topic Meningococcal B Vaccine Aged Out No l [...] patient's age to complete this topic Insurance [employer] Care Teams Hydraulic Billet Maker Relationship Specialty Start Date End Date Mikie Ha MD [address] [place] [phone] PCP - General FAMILY PRACTICE 01/04/23
--- NOTE | 2025-07-18 01:16 | ED.DENTAL ---
HPI - Dental/Oral General Chief complaint: Dental/Oral Stated complaint: tooth abscess Source: patient Mode of arrival: ambulatory Limitations: no limitations History of Present Illness HPI Narrative: Left upper teeth dental pain and caries for over 1 and have year. Intermittent. Last time was seen by dentist years ago. He denies any fever, chills, nausea, vomiting, trouble swallowing or breathing or headache Location: Tooth # (11 and 12) Teeth map:  1. 11. And 12 Related Data Allergies Allergy/AdvReac Type Severity Reaction Status Date / Time No Known Allergies Allergy Verified 07/18/25 01:04 Review of Systems Review of Systems: All systems reviewed & are unremarkable except as noted in HPI and below PMFSH Past Medical History Medical History Mastoiditis Otitis media Patient denies medical problems Family History Family History Father Hypertension Mother Hypertension Depression Heart disease Mental health problem Sibling Diabetes mellitus Hypertension Depression Mental health problem Other Depression Mental health problem Grandparent Cancer Diabetes mellitus Hypertension Heart disease Mental health problem Grandparent Hypertension Mental health problem Social History Social History Smoking status: Former smoker Alcohol intake: current Alcohol use details: Social Substance use: current Substance use type: marijuana Lack of Transportation: No Lack of Food: Never True Current Housing: I Have Housing Concerned About Future Housing: No Difficulty Paying Gas/Electric Bills: No Difficulty Paying for Meds: No Currently Unemployed: No Education: Bachelor's Degree Difficulty w/ Childcare or Family Care: No Living arrangements: with family Exam Narrative: General appearance: Well-developed, well-nourished Skin: Normal color Head: Normocephalic, nontraumatic Eyes: Clear conjunctiva ENT: Oropharynx normal, ears normal, nose normal Neck: Supple, nontender Neurologic: Alert and oriented ?3, ADDICTION PSYCHIATRIST is normal as tested, no gross motor deficit left side upper gum showing diffuse erythema, diffuse tenderness and broken teeth 11. And 12 with decay Course Vital Signs Vital signs: Vital Signs Temperature 36.2 C L 07/18/25 01:00 Pulse Rate 80 07/18/25 01:00 Respiratory Rate 19 07/18/25 01:00 Blood Pressure 179/110 H 07/18/25 01:00 Pulse Oximetry 100 07/18/25 01:00 Oxygen Delivery Room Air 07/18/25 01:00 Temperature 36.2 C L 07/18/25 01:00 Pulse Rate 80 07/18/25 01:00 Respiratory Rate 19 07/18/25 01:00 Blood Pressure 179/110 H 07/18/25 01:00 Pulse Oximetry 100 07/18/25 01:00 Oxygen Delivery Room Air 07/18/25 01:00 MDM - Dental/Oral MDM Narrative Medical decision making narrative: Dental decay and caries Differential Diagnosis Differential diagnosis: Likely dental caries, toothache and fracture of tooth Critical Care Time Critical Care Time Critical Care Time: No Discharge Plan Discharge Clinical Impression: Toothache Patient Disposition: Home Condition: Stable Instructions: Antibiotic Form, Toothache (ED) Additional Instructions: Return if symptoms are worsening , call your family physician, your dentist for appointment, take Tylenol as as needed for aches and pain, continue home medications. Patient Language: Citizen Of [place] Prescriptions: New clindamycin HCl [Cleocin HCl] 300 mg capsule 300 mg PO Q6H Qty: 40 0RF ibuprofen [IBU] 800 mg tablet 800 mg PO TID Qty: 20 0RF metronidazole 500 mg tablet 500 mg PO Q8H 5 Days Qty: 15 0RF No Action naproxen [Naprosyn] 500 mg tablet 500 mg PO BID Qty: 20 0RF cyclobenzaprine 10 mg tablet 10 mg PO TID PRN (Reason: muscle spasm) Qty: 20 0RF hydrocodone-acetaminophen 5-325 mg tablet 1 tablet PO Q4H Qty: 20 0RF Follow-up/Referrals: UNKNOWN,DOCTOR [Primary Care Provider] Stand Alone Forms: Work/School Release IP
[2025-07-18] MEDS: IBUPROFEN 400 MG TABLET 800 MG PO (01:20)
[2025-07-18] MEDS: CLINDAMYCIN HCL 150 MG CAP 450 MG PO (01:20)
[2025-07-18] MEDS: HYDROcodone/acetaminophen (*CRX) 5-325 MG TABLET 1 TAB PO (01:21)
[2025-07-18 01:39] VITALS: BP 178/100; PULSE 80; RESP 18; TEMP 36.6; O2SAT 96
== END 2025-07-18 01:39 | disposition home or self-care (01) ==
PROVIDERS: Emergency Provider Emergency Medicine
DX: K08.89 Other specified disorders of teeth and supporting structures (principal); Z87.891 Personal history of nicotine dependence
CPT/HCPCS: 99283; A9270